=== PATIENT | female | born 1985 | race Caucasian/White ===

== ENCOUNTER 2018-05-06 11:30 | Inpatient (IN) | payer SELFPAY ==
[2018-05-06] VITALS (19 sets, daily range): BP systolic 93–122; BP diastolic 54–76; PULSE 59–82; RESP 16–18; TEMP 36.1–36.9; O2SAT 95–100; BMI 28.8
[2018-05-06] MEDS: Betamethasone/Betamethasone 30 MG/5 ML Vial 12 MG IM (11:55)
[2018-05-06 11:59] LABS: Absolute Lymphocyte Count 1.71 X10^3/ul (0.83-4.51); Absolute Neutrophil Count 10.1 X10^3/uL (2.0-7.7); Basophil# 0.01 X10^3/uL; Basophil% 0.1 % (0-1); Eosinophil# 0.04 X10^3/uL; Eosinophils% 0.3 % (0-5); Hematocrit 40.1 % (37-47); Hemoglobin 13.5 g/dl (12.0-15.0); Lymphocyte # 1.71 X10^3/ul (4.0); Lymphocyte % 13.7 % (19-41); Mean Corp Hgb Conc 33.7 g/gl (32-36); Mean Platelet Vol. 10.3 fl (6.2-12.0); Monocyte# 0.57 X10^3/uL; Monocyte% 4.6 % (0-10); Neutrophil % 81.1 % (47-70); POSITIVE COUNT NO; POSITIVE DIFFERENTIAL NO; POSITIVE MORPHOLOGY NO; Platelet Count 217 K/mm3 (150-450); RBC Distribution Width CV 13.6 % (11.6-14.6); RBC Distribution Width SD 45.7 fl (35.1-43.9); Red Blood Count 4.36 M/mm3 (4.2-5.4); White Blood Count 12.5 K/mm3 (4.4-11.0)
[2018-05-06] MEDS: Cefazolin 2 GM in 0.9% Normal Saline 100 ML IV (12:27)
[2018-05-06] MEDS: Oxytocin 30 units/NS 500 ml 30 UNITS/500 ML IV.SOLN 167 UNITS IV (12:31)
[2018-05-06] MEDS: Lactated Ringers 1,000 ML 100 ML IV ×2 (13:00→21:15)
--- NOTE | 2018-05-06 13:18 | HP.PCM_ITS ---
- Problem List (1) 33 weeks gestation of Status: Acute (2) distress Status: Acute History and Physical Date of Admission: 05/06/18 Date: 05/06/2018 Name: KASSANDRA SANFORD Age: 32 Date of : 1985 Surgical History and Physical Kassandra Sanford, a 32 year old female 4 1 0 2 7, referred by Dr. Thompson for non-reassuring heart rate tracing in office and two days of decreased movement. On arrival Kassandra denies contractions, leaking of fluid or vaginal bleeding. She otherwise feels well. She has a history of 2 prior sections and was planning repeat with Dr. Melendez. [facility] MEDICATIONS HISTORY: ALLERGIES: No Known Allergies Infections - Chicken pox Illnesses - Denies medical history Accidents - None Hospitalizations - see surgery Review of Systems: GENERAL - Denies fever, or chills SKIN - Denies skin changes EYES - Denies visual changes EARS - Denies difficulty hearing NOSE - Denies nasal congestion or bleeding MOUTH - Denies sore throat or difficulty swallowing NECK - Denies pain or swelling RESPIRATORY - Denies shortness of breath or wheezing CARDIOVASCULAR - Denies palpitations or chest pain GASTROINTESTINAL - Denies nausea, vomiting, diarrhea, constipation GENITOURINARY - Denies dysuria, frequency of urination, incontinence of urine MUSCULOSKELETAL - Denies joint or muscle pain NEUROLOGICAL - Denies localized numbness or weakness PSYCHIATRIC - Denies depression or anxiety ENDOCRINE - Denies heat or cold intolerance, weight loss or gain HEMATO-IMMUNOLOGIC - Denies excesive bleeding with cuts SOCIAL HISTORY: Alcohol Use - None Smoking - Never Diet - no special diet Lifestyle - moderate stress lifestyle and Exercise - active work Seat Belt Use - most of the time Employer - [employer] Illicit Drug Use - None Sexual Activity - Spouse-Sig Other Name - Migel Sanford Spouse-Sig Other Occupation - [employer] Children Name(s) - Navin(09),Lei(10),Nasir(12),[employer](13),Bret [employer](15), Control - FAMILY HISTORY: Non-contributory MENSTRUAL HISTORY: LMP Known?- DefiniteAmount/Duration - 6-7 DAYS, Regularity - Regular, Frequency - monthly days, LMP - 09/11/17, Age Onset Menarche - 13 PAST PREGNANCIES: Total Pregnancies - 8; Full Term Pregnancies - 4; Premature - 1; Abortions, Induced - 0; Abortions, Spontaneous - 0; Ectopics - 0; Multiple Births - 2; Living Children - 7 SURGICAL HISTORY: 1. 06/05/2013 ; Dr. Thrasher - 2. 04/16/2015 ; Dr. Mata - 3. 02/23/2017 [facility] ; - PHYSICAL EXAM Vital signs stable, pt afebrile Weight- 174.5 lbs Height- 65 inch CONSTITUTIONAL - NAD, well nourished, and well developed ABDOMEN - Without hepatosplenomegaly, distention, masses, rebound, or guarding; normal bowel sounds; no hernias and AGA NEUROLOGICAL - Cranial nerves II-XII grossly intact PSYCHIATRIC - A and O to time, place, person, mood and affect FHR - 160, absent variability, no accelerations, + late decelerations with every contraction. SVE - deferred TOCO - /10 min ASSESSMENT/PLAN: 1. Encounter for supervision of subsequent , third trimester 2. 33 weeks gestational age 3. Non-reassuring heart rate tracing Single dose betamethasone given. Cat III FHR with mild improvement to Cat II with O2 supplementation and late decelerations present, maternal repositioning and IV fluid hydration. US performed demonstrating WALI 2cm with no movement, breathing or tone c/w BPP 2/10. Given prior poor history, persistent Cat II-III FHR despite oxygen supplementation, maternal repositioning and bolus I advised section. I reviewed with patient and section risks including pain, bleeding, infection, injury to bowel/bladder/ureter, scarring, need for further section, hemorrhage possibly requiring dilation and curettage or hysterectomy, possible need for blood transfusion, laceration. Reviewed risks of prematurity including respiratory distress, hypoglycemia, feeding difficulty, infection, need for prolonged hospitalization. Pediatric Hospitalist notified. Patient and given opportunity to ask questions and questions answered to their satisfaction.
--- NOTE | 2018-05-06 13:25 | OP.PCM_ITS ---
- Problem List (1) 33 weeks gestation of Status: Acute (2) distress Status: Acute Delivery Classification: OLIMPIA Final SYLVIE: 06/18/18 - 22 w US c/w LMP Final SYLVIE Source: LMP Gestational age: 34 Weeks and 2 Days [place] doctor who attended delivery (if requested by OB): Azucena Valdovinos Indications: 32-year-old 8 para 4127 admitted at 33-6/7 weeks gestational age with complaint of decreased movement. She was referred from her primary OB Dr. Thompson for nonreassuring heart rate tracing in the office. On arrival she had a category 3 heart rate tracing with only minimal improvement despite resuscitative measures and WALI of 2 cm with no evidence of breathing, movement, tone on ultrasound. She is advised to proceed with repeat section. Risks, benefits, indications were reviewed with patient as well as potential risks of prematurity. Consents were signed. The patient agreed to proceed. Patient had indicated she was uncertain regarding sterilization at the time of her procedure thus this was not planned. Indications for : Repeat Elective , Distress Description of Procedure: Procedure: The patient was taken to the operating room and spinal analgesia was administered. She is placed in a dorsal supine position with left lateral tilt. The perineum and abdomen were prepped and draped in sterile fashion. And the spinal was found to be adequate. A Pfannenstiel incision was made using a scalpel and brought down to incise the subcutaneous tissue and rectus fascia at the midline. Subcutaneous tissue was bluntly dissected off the fascia laterally. The fascial incision was dissected laterally and cephalad using curved Dockery scissors. The superior leaflet of the rectus fascia was grasped using Bijan clamps and bluntly dissected and sharply dissected from the underlying rectus muscle. In a similar fashion the inferior rectus fascia was dissected from the underlying muscle. The rectus muscles were bluntly at the midline. The peritoneum was identified and entered [sharply]. The bladder blade was placed into the abdomen and the vesicouterine peritoneal fold identified. The fold was incised and a bladder flap created. Bladder blade was then repositioned to the abdomen. A low transverse hysterotomy was made using the [Metzenbaum scissors] to level of the membranes. The hysterotomy was extended bluntly cephalad and caudad. The membranes were then ruptured revealing clear fluid. The head was elevated and brought to the level of the hysterotomy and the delivered revealing a [male] infant. The cord was doubly clamped and cut. The infant was passed to awaiting [nursery personnel and Pediatric Hospitalist]. The placenta was [expressed] from the uterus and appeared intact on inspection. The uterus was cleared of debris. The hysterotomy was then repaired using 0 Vicryl running lock suture. A second imbricating layer was also placed for additional hemostasis. The bladder blade was removed. The anterior cul-de-sac was cleared of debris. The peritoneum and rectus muscles were reapproximated using 2-0 Vicryl running suture. The rectus fascia was closed using 1 Stratafix running suture. The subcutaneous tissue was sponge irrigated and small capillary bleeding controlled using the Bovie device. The subcutaneous tissue was reapproximated using 2-0 Vicryl. The skin was closed using 4-0 Monocryl subcuticularly by the SHELL MOLDING ROLLER BLAST OPERATOR under my supervision. A Mepilex occlusive dressing was placed over the incision. The fundus was firm. The patient was then transferred to the recovery room without complication. Sponge, instrument, and needle counts were correct ?2. Amniotic Membrane Rupture Type: Artificial Amniotic Fluid Description: Clear Placenta Disposition: Routine to Lab Specimen(s) sent to pathology: Placenta Drain: Kim to straight drain Fluids Replaced: 1500 ml Cord Entanglement: None Cord Vessel Description: 3 Vessels Esitmated Blood Loss (ml): 500 Gender: Male (1 minute): 8 (5 minute): 9 Delayed cord clamping: No Pre-op Antibiotic Given: Ancef 2 grams IV x1 Pt instructed on risks of surgery: Bleeding, Anesthesia Risks, Infection, Need for Future C-Sections, Injury to surrounding structure(s) including bowel and bladder Complications: None - Admit VTE Documentation VTE Present on Admission: No VTE Mechan Device Prophylaxis: SCD's VTE Pharm Prophylaxis ordered?: No
[2018-05-06] MEDS: Ondansetron ODT 4 MG Tablet PO (15:53)
[2018-05-06] MEDS: Ketorolac 30 MG/ML Syringe IV (18:49)
[2018-05-06] MEDS: 0.9% Saline Lock 10 ML Syringe IV (18:50)
[2018-05-07] VITALS (9 sets, daily range): BP systolic 97–114; BP diastolic 56–73; PULSE 53–82; RESP 16–18; TEMP 36.3–36.9; O2SAT 95–100
[2018-05-07] MEDS: Ketorolac 30 MG/ML Syringe IV ×5 (00:13→23:41)
[2018-05-07] MEDS: 0.9% Saline Lock 10 ML Syringe IV ×8 (00:14→23:43)
[2018-05-07] MEDS: Nalbuphine 10 MG/ML Ampul 5 MG IV (01:14)
[2018-05-07 06:49] LABS: Hematocrit 37.2 % (37-47); Hemoglobin 12.5 g/dl (12.0-15.0); Mean Corp Hgb Conc 33.6 g/gl (32-36); Mean Corpuscular Volume 92.3 fL (81-99); Mean Platelet Vol. 10.4 fl (6.2-12.0); Platelet Count 207 K/mm3 (150-450); RBC Distribution Width CV 13.6 % (11.6-14.6); RBC Distribution Width SD 45.5 fl (35.1-43.9); Red Blood Count 4.03 M/mm3 (4.2-5.4); White Blood Count 16.4 K/mm3 (4.4-11.0)
[2018-05-07 06:55] LABS: Scan Indicated on CBC? Y/N NO
--- NOTE | 2018-05-07 07:54 | PCM.PN.OB ---
Patient Problems: Active and Suspected Problems 33 weeks gestation of (Acute) distress (Acute) Subjective: Patient without complaints. Tolerating diet well. Pain is well controlled. Positive flatus. - Physical Exam Vital Signs AF, VSS Temp Pulse Resp BP Pulse Ox 97.3 F L 54 L 17 114/71 99 05/07/18 04:15 05/07/18 06:15 05/07/18 06:15 05/07/18 04:15 05/07/18 06:15 Oxygen Delivery Method Room Air Weight: 173 lb Body Mass Index (BMI) 28.8 Intake and Output for Last 24 Hours 05/05/18 05/06/18 05/07/18 23:59 23:59 23:59 Intake Total 2718 / 2718 2090 / 2090 Output Total 1900 / 1900 1300 / 1300 Balance 818 / 818 790 / 790 Laboratory Tests Past 24 Hrs 05/06/18 05/06/18 05/07/18 11:45 11:45 06:25 WBC 12.5 H 16.4 H RBC 4.36 4.03 L Hgb 13.5 12.5 Hct 40.1 37.2 MCV 92.0 92.3 MCH 31.0 31.0 MCHC 33.7 33.6 RDW 13.6 13.6 RDW Differential 45.7 H 45.5 H Plt Count 217 207 MPV 10.3 10.4 Immature Gran % (Auto) 0.200 Neut % (Auto) 81.1 H Lymph % (Auto) 13.7 L Pratt % (Auto) 4.6 Eos % (Auto) 0.3 Baso % (Auto) 0.1 Absolute Neuts (auto) 10.1 H Absolute Lymphs (auto) 1.71 Total Counted Not Reportable Blood Type A POSITIVE Antibody Screen NEGATIVE Wound is clean, dry, intact. Good urine output. Hemoglobin okay. Medical Necessity - Tobacco Use Smoking Status: Never smoker Assessment/Plan All Active Problems 33 weeks gestation of (Acute) distress (Acute) Doing well. Continuing present care. Would like to go to [facility] status tomorrow if good progress continues.
[2018-05-07] MEDS: Senna/Docusate Sodium 1 Tablet PO (11:32)
[2018-05-08 02:50] VITALS: BP 108/66; PULSE 68; RESP 18; TEMP 36.4
[2018-05-08] MEDS: Ketorolac 30 MG/ML Syringe IV ×2 (05:36→11:37)
[2018-05-08] MEDS: 0.9% Saline Lock 10 ML Syringe IV ×3 (05:36→11:34)
[2018-05-08 08:17] VITALS: BP 106/69; PULSE 70; RESP 18; TEMP 36.6; O2SAT 97
--- NOTE | 2018-05-08 09:15 | PCM.PN.OB ---
Patient Problems: Active and Suspected Problems 33 weeks gestation of (Acute) distress (Acute) Subjective: Without complaints. Tolerating diet well. Breast-feeding going well. Vaginal bleeding. Be well likely stay a few more days. - Physical Exam Vital Signs Temp Pulse Resp BP Pulse Ox 97.8 F 70 18 106/69 97 05/08/18 08:17 05/08/18 08:17 05/08/18 08:17 05/08/18 08:17 05/08/18 08:17 Oxygen Delivery Method Room Air Weight: 173 lb Body Mass Index (BMI) 28.8 Intake and Output for Last 24 Hours 05/06/18 05/07/18 05/08/18 23:59 23:59 23:59 Intake Total 2718 / 2718 2090 / 2090 Output Total 1900 / 1900 3200 / 3200 Balance 818 / 818 -1110 / -1110 Medical Necessity - Tobacco Use Smoking Status: Never smoker Assessment/Plan All Active Problems 33 weeks gestation of (Acute) distress (Acute) Doing well postoperative day #2 status post . Continuing present care.
--- NOTE | 2018-05-08 14:30 | NURSING ---
This occupational health nursing director reviewed the charting completed by the executive director of nursing today, Pearl
[2018-05-08 14:45] VITALS: BP 108/73; PULSE 78; RESP 18; TEMP 36.6; O2SAT 98
[2018-05-08 20:10] VITALS: BP 115/73; PULSE 79; RESP 16; TEMP 36.4; O2SAT 97
[2018-05-08] MEDS: Acetaminophen 500 MG Tablet 1000 MG PO (22:33)
[2018-05-09 01:02] VITALS: BP 107/71; PULSE 70; RESP 16; TEMP 36.4; O2SAT 97
[2018-05-09 07:35] VITALS: BP 112/73; PULSE 77; RESP 18; TEMP 36.6; O2SAT 97
[2018-05-09] MEDS: Acetaminophen 500 MG Tablet 1000 MG PO (07:56)
--- NOTE | 2018-05-09 09:21 | PCM.PN.OB ---
Patient Problems: Active and Suspected Problems 33 weeks gestation of (Acute) distress (Acute) Subjective: Patient without complaints. Tolerating diet well. Rash from [place] resolving. Wants to be released to hotel status today. - Physical Exam Vital Signs AF, VSS Temp Pulse Resp BP Pulse Ox 97.9 F 77 18 112/73 97 05/09/18 07:35 05/09/18 07:35 05/09/18 07:35 05/09/18 07:35 05/09/18 07:35 Oxygen Delivery Method Room Air Weight: 173 lb Body Mass Index (BMI) 28.8 Intake and Output for Last 24 Hours 05/07/18 05/08/18 05/09/18 23:59 23:59 23:59 Intake Total 2090 / 2090 Output Total 3200 / 3200 Balance -1110 / -1110 Wound is clean, dry, intact. Medical Necessity - Tobacco Use Smoking Status: Never smoker Assessment/Plan All Active Problems 33 weeks gestation of (Acute) distress (Acute) Doing well postoperative day #3 from emergency section. Will release to home with routine instructions.
--- NOTE | 2018-05-09 09:22 | PCM.DC.BLA ---
Discharge Summary Date of Admission: 05/06/18 Date of Discharge: 05/09/18 Summary: History of present illness: This is a 32-year-old patient who presents at approximately 33 weeks gestation with labor. Nonstress test showed some distress. Physical exam: Unremarkable Course: Patient was admitted and had a emergency section performed. Postoperatively the patient did well demonstrating stable hemoglobin and bowel function by postoperative day #1. Patient's baby is in the special care nursery and she decided to be released to hotel status on postoperative day #3. Discharge instructions and follow-up: Patient was instructed not put anything the vagina for a month call the office for an appointment in 2 weeks and 6 weeks. She was also given a prescription for oxycodone and Colace to be used as needed
[2018-05-09 09:25] VITALS: BP 115/71; PULSE 81; RESP 14; TEMP 36.7; O2SAT 99
--- NOTE | 2018-05-09 09:54 | NURSING ---
Dr. Melendez notified that pt has erythema, firmness, and puritis noted on rt upper leg with a definite line noted on upper thigh area by RN this morning after pt's shower. Pt thought that it might be related to k-pad being on too long on rt side but erythema also noted above mepilex dressing. Dr. Melendez looked at the area at this time and feels like it is more related to allergic reaction to adhesive from betadine drape from surgery. Erythema has improved on rt side but also noted now on left side in groin area. instructed pt to just clean around the area well when showering and follow up with him in office in 2 weeks and 6 weeks.
[2018-05-09 10:22] VITALS: BP 115/71; PULSE 81; RESP 14
--- NOTE | 2018-05-09 10:28 | PCM.DCCSEC ---
Discharge Diet: No Restrictions Discharge Activity: May not drive while taking narcotic pain medications., May Shower, May Take a Tub Bath May resume sexual activity in: 4-6 weeks Lifting Restrictions: 20 pounds Additional Activity Instructions:: Nothing in the vagina for 4-6 weeks. You may return to work/school in 6 weeks. Call your doctor if your incision/area has: Continuous Slow Oozing, Sudden Increased Bleeding, Increased Pain/ Swelling, Increased Redness, Foul Smelling Discharge Call your doctor if you observe: Fever of 101 or Higher, Inability to urinate, Inability to have a bowel movement, Using more than one pad per hour Additional Instructions: If you experience any of the following, contact your healthcare provider. Bleeding that soaks a pad every hour for 2 hours Unrelieved incision or abdominal pain Swelling, redness, discharge or bleeding from your incision or episiotomy site Your incision begins to separate Problems urinating (including inability to urinate or burning while urinating). Visual changes Severe headache Flu-like symptoms Pain or redness in one of both of your breasts Pain, warmth, tenderness or swelling in your legs, especially the calf area Frequent nausea and vomiting Symptoms of depression or anxiety If you experience any of the following, call 911 or go to the nearest Emergency Room. Chest pain Problems breathing Seizure activity Partial or complete paralysis of a body part, slurred speech, weakness or drooping of the face, or a sudden inability to walk or hold your balance Allergies/Adverse Reactions: Allergies No Known Allergies Allergy (Verified 05/06/18 12:06) Follow-Up: Call to make an appointment with your doctor for an incision check in 1-2 weeks. You will also need a 6 week post- follow up appointment. Test results from this visit will be discussed in further detail at your follow-up appointment, if applicable. Please Follow Up With: Ashwin Melendez MD - [phone] When: Call to make an appointment for an incision check in 2 weeks. Primary Care Physician: Krzysztof Thompson DO [Primary Care Provider] -
--- NOTE | 2018-05-09 10:32 | DCINST_ITS ---
Discharge Diet: No Restrictions Discharge Activity: May not drive while taking narcotic pain medications., May Shower, May Take a Tub Bath May resume sexual activity in: 4-6 weeks Lifting Restrictions: 20 pounds Additional Activity Instructions:: Nothing in the vagina for 4-6 weeks. You may return to work/school in 6 weeks. Call your doctor if your incision/area has: Continuous Slow Oozing, Sudden Increased Bleeding, Increased Pain/ Swelling, Increased Redness, Foul Smelling Discharge Call your doctor if you observe: Fever of 101 or Higher, Inability to urinate, Inability to have a bowel movement, Using more than one pad per hour Additional Instructions: If you experience any of the following, contact your healthcare provider. * Bleeding that soaks a pad every hour for 2 hours * Unrelieved incision or abdominal pain * Swelling, redness, discharge or bleeding from your incision or episiotomy site * Your incision begins to separate * Problems urinating (including inability to urinate or burning while urinating). * Visual changes * Severe headache * Flu-like symptoms * Pain or redness in one of both of your breasts * Pain, warmth, tenderness or swelling in your legs, especially the calf area * Frequent nausea and vomiting * Symptoms of depression or anxiety If you experience any of the following, call 911 or go to the nearest Emergency Room. * Chest pain * Problems breathing * Seizure activity * Partial or complete paralysis of a body part, slurred speech, weakness or drooping of the face, or a sudden inability to walk or hold your balance Allergies/Adverse Reactions: Allergies No Known Allergies Allergy (Verified 05/06/18 12:06) Follow-Up: Call to make an appointment with your doctor for an incision check in 1-2 weeks. You will also need a 6 week post- follow up appointment. Test results from this visit will be discussed in further detail at your follow- up appointment, if applicable. Please Follow Up With: Ashwin Melendez MD - [phone] When: Call to make an appointment for an incision check in 2 weeks. Primary Care Physician: Krzysztof Thompson DO [Primary Care Provider] -
[2018-05-09 15:00] VITALS: BP 119/79; PULSE 87; RESP 14; TEMP 36.7; O2SAT 97
== END 2018-05-09 18:00 | disposition home or self-care (01) | DRG 765 ==
PROVIDERS: Admitting Provider Obstetrics & Gynecology; Family Provider Family Medicine; PCP Family Medicine; Visit Provider Obstetrics & Gynecology
DX: O76 Abnormality in fetal heart rate and rhythm complicating labor and delivery (principal); O60.14X0 Preterm labor third trimester with preterm delivery third trimester, not applicable or unspecified; O36.8130 Decreased fetal movements, third trimester, not applicable or unspecified; O34.211 Maternal care for low transverse scar from previous cesarean delivery; Z3A.33 33 weeks gestation of pregnancy; Z37.0 Single live birth
CPT/HCPCS: 85025; 85027; 86850; 86900; 99218; J7120; 90686; A4216; G0378; J0702; J2405

== ENCOUNTER → 2020-05-18 | Outpatient (CLI) | payer OTHER, SELFPAY ==
[2018-05-06 11:41] VITALS: BMI 28.8
[2020-05-21 20:33] LABS: HPV Reflexed? NOT INDICATED
[2020-05-22 03:06] LABS: Chlamydia By Nucleic Acid AMP Negative (Negative)
[2020-05-22 14:09] LABS: Gonococcus By Nucleic Acid AMP Negative (Negative)
== END | disposition home or self-care (01) ==
LOC: LABSPEC 05-19 09:38
PROVIDERS: PCP Family Medicine; Visit Provider Obstetrics & Gynecology
DX: Z12.4 Encounter for screening for malignant neoplasm of cervix (principal); Z11.3 Encounter for screening for infections with a predominantly sexual mode of transmission
CPT/HCPCS: 87491; 87591; 88175; G0145

== ENCOUNTER 2020-08-28 14:45 | Outpatient (CLI) | payer OTHER, SELFPAY ==
[2018-05-06 11:41] VITALS: BMI 28.8
[2020-08-28 15:02] VITALS: BP 113/70; PULSE 95; TEMP 37.1; O2SAT 100
[2020-08-28 15:03] VITALS: TEMP 37.1
[2020-08-28 15:18] VITALS: BMI 28.4
--- NOTE | 2020-08-28 17:05 | PCM.PN.BLA ---
Progress Note TRIAGE NOTE HPI: 35 yo [id number] at 29/1w, SYLVIE 11/12/20 by LMP, presenting with bleeding. Had some spotting after riding in a car today. She has had this happen after a car ride in the past. Denies LOF, contractions. +FM. Had some light pink with wiping, feels like this is lightened greatly since this early afternoon. This is complicated by: previa with 4 prior sections, prior [id number] deliveries, AMA, brother with factor V Leiden Obstetrical History G1: 38w G2: 6w SAB G3: 37w G4: 38w G5: 35w c/s twins G6: 34w c/s twins G7: 24w G8: 33w c/s G9: current Past Medical History None Medications PNV, asa 81 mg Past Surgical History c/s, D&C Social History Tobacco use: denies Alcohol use: denies Illicit drug use: denies Labs Blood type: A pos Rubella: immune Hep B/C: neg/neg HIV: unk RPR: nonreactive GBS: unknown Allergies NKDA Review of Systems General: alert and oriented HEENT: _denies change of vision Heart/lungs: _denies CP, SOB GI: _denies nausea, vomiting, dysuria, diarrhea MSK: _denies calf pain, tenderness Physical Exam Vital Signs Temp Pulse BP Pulse Ox 08/28/20 15:03 98.8 F 08/28/20 15:02 98.8 F 95 113/70 100 General: a&o x3, NAD HEENT: normocephalic, atraumatic Cardio: no JVD Resp: no increased work in breathing Abdomen: soft, gravid, nontender Extremities: _minimal-moderate edema CE: not done. Scant blood on pad that is old brown blood. FHT: 150/mod gilberto/+accel/no decel [place]: quiet Labs None Assessment & Plan 35 yo [id number] at 29/1w, SYLVIE 11/12/20 by LMP, presenting with bleeding, known placenta previaThis is complicated by: previa with 4 prior sections, prior deliveries, AMA, brother with factor V Leiden. -Patient has been monitored for 2 hours, will monitor for a total of 3 hours. status reassuring, NST reactive. Patient is not long. Bleeding has improved greatly and is now scant with wiping. Discussed bleeding with placenta previa at length with the patient and her . Discussed when to come to hospital to be evaluated. All questions answered. Her next appointment is Sunday in [place] for apt and US. Plan: monitor x3hr, as long as stable will be discharged home. STROKE Vital Signs/Narrative: Vital Signs Temp Pulse BP Pulse Ox 08/28/20 15:03 98.8 F 08/28/20 15:02 98.8 F 95 113/70 100
== END 2020-08-28 18:18 | disposition home or self-care (01) ==
LOC: WPOUT 14:47 → WP 14:48
PROVIDERS: PCP Family Medicine; Visit Provider Student in an Organized Health Care Education/Training Program
DX: O44.10 Complete placenta previa with hemorrhage, unspecified trimester (principal); O34.219 Maternal care for unspecified type scar from previous cesarean delivery; Z3A.00 Weeks of gestation of pregnancy not specified; Z79.82 Long term (current) use of aspirin; Z87.59 Personal history of other complications of pregnancy, childbirth and the puerperium
CPT/HCPCS: 59025; 59050; 99218; G0378

== ENCOUNTER 2020-09-21 08:40 | Inpatient (IN) | payer SELFPAY ==
[2020-09-21] VITALS (21 sets, daily range): BP systolic 101–125; BP diastolic 53–76; PULSE 62–97; RESP 15–18; TEMP 36.1–37.2; O2SAT 95–100; BMI 28.8
[2020-09-21 08:37] LABS: ROM Internal Control Test YES-OK TO RESULT pt. (Internal QC)
[2020-09-21 08:38] LABS: ROM Patient Test POSITIVE (Negative)
--- NOTE | 2020-09-21 08:54 | HP.PCM_ITS ---
History and Physical Date of Admission: 09/21/20 OG ANTEPARTUM RECORD - HISTORY AND PHYSICAL (09/21/2020) Name: EBONY SANFORD History of this : This is a 35 year old [id number] presents at 32 wks + 4 days gestation with bleeding and rupture of membranes. OB Physician: Ashwin Melendez MD Melbeta's Physician: Jay ...................................................................... : 1985 Age: 35 Address: [address] [place] [address] Phone: H) [phone] ([phone] Insurance Carrier: Emergency Contact: NONE ...................................................................... Final SYLVIE: 11/12/20 By Ultrasound: 14 weeks 4 days PARITY: (G-Total Pregnancies P-Fullterm,Premature,Induced AB,Spont AB, Ectopics, Multiple,Living) SYLVIE CONFIRMATION: By LMP: 02/06/20 Final SYLVIE: 11/12/20 OB PROBLEM LIST: Total previa at 14+ weeks gestation--central previa persists 28 weeks; repeat 2 weeks at [facility] with doppler and full bladder to confirm no accreta or bladder encroachment; reviewed bleeding precautionms and delivery 37 weeks gestation 2 sets of twins, born at 35 weeks, and 34 weeks AMA. Likely to decline AFP, CF/SMA carrier screen. Brother with Factor V Hx of 24 week IUFD Prior C/S x 4, plans repeat at [facility]. 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 Drug Use - denies use of street drugs Sexual Activity - Residence - [facility] [place] Spouse-Sig Other Name - Migel Sanford Spouse-Sig Other Occupation - [employer] Children Name(s) - Navin(09),Lei(10),Nasir(12),[employer](13),Bret [employer] Sonali(15) Carlos (18) PRIOR DELIVERY HISTORY DEL DATE GEST LAB WT LB WT OZ TYPE ANES LABOR TX 01 Nov 10 6 0 0 0 Sab None No 04 Sep 15 34 0 0 0 C-Sec Spinal No 14 Howard 17 24 0 0 0 Vagin General No 21 Dec 10 37 0 6 12 Vag None No 24 Mar 12 38 0 6 9 Vag None No 24 Oct 13 35 0 0 0 C-Sec General No 24 Sep 18 33 0 4 12 C-Sec Spinal No 28 Sep 09 38 0 7 6 Vag None No ANTEPARTUM FLOW CHART VISIT GE RTC FU F F MI U U DATE WK MD WKS HT PN HR M SS BP ED WT MI GL D EF ST __ ____ ___ __ __ ___ __ __ __ ___ __ __ __ ___ __ 05 Sep JM 2 32 V + + 120/82 sl 171 Sep 11 JMW 1 30 + + 124/76 sl 169 tr - Sep 10 JMW 2 29 + + 124/72 0 173 ne ne Sep 09 JMW 2 29 + + 116/62 0 170 - - Aug 05 JM 4 24 - + + 120/64 sl 166 tr - Jul 02 JM 4 20 - + + 110/64 sl 163 - - ANTEPARTUM NOTE(S): Sep 17 2020: decreased FM, discharge, spotaneous ctx's Sep 06 2020: scant bleeding; plans to stay in [facility] Sep 01 2020: US today, minimal bleeding; previa persists Aug 24 2020: No bleeding since 08/20Jul 27 2020: see progress note Jun 29 2020: Doing Well, Comp U/S today COMPREHENSIVE ANTEPARTUM NOTE(S): Sep 17 2020: Ebony is here for a PNV. FM today. Has had random episodes of decreased FM. Clear + brown-black discharge along with spontaneous ctx's. Sl edema in ankles, tx's with compression socks. No other concerns expressed. Sep 17 2020: 32wk, complete previa. S/p u/s 09/01/20 with no signs of accreta here at [facility]. For delivery at 36-37wks via c/s. To move closer to hospital. No bleeding now, dark discharge. For growth u/s at next visit. Sep 06 2020: Van are here to eval bleeding. Started yesterday at int. Sometimes just on tp, other times in commode. Did not wear pad in. Baby moving like usual. Sl edema lower legs w puffy ankles yasmine. DRC. Sep 01 2020: Ebony is here for US and PNV. Has not had anymore bleeding since sunday. Having good FM. No edema noted. States she feels pretty good. Is concern about placenta placement. Urine dipped neg and neg. LSS Aug 24 2020: Ebony presents here today for Sono and Pnv. Reports she has had no bleeding since Sunday08/20/20 when she called our Office and She never went back to check message phone as that is why they never returned our call. Good FM. LIBAN Jul 27 2020: Ebony presents for her PNV. She is reporting +FM however relates it is much slower than she recalls with her previous pregnancies. Pt sts she had small vaginal spotting starting Sun07/23/20 and lasted 3days changing to a drk brown discharge after about the first 32hrs. Pt also had a moderate am't of low back and lower abd cramping. She has some edema in her Lt lower extremity today d/t her vericosities. Pt drank her glucola and will have her 1hrGTT/CBC today. JT Jul 27 2020: Labs drawn x2 attempts. 1st attempt left ac 23g butterfly no blood return. Patient tolerated well site without compromise, second attempt from rt ac with 23G butterfly patient toleratd well site without compromise. 1hr gct, and cbc. jlb Jul 27 2020: 24wk, 1hr GTT today. Complete previa, had some spotting over the weekend with no bleeding past two days. Rediscussed precautions, pelvic rest, limit heavy lifting. For repeat u/s at 28wks, if still previa will need u/s at [place] vs [facility] with doppler for accreta. Will need repeat c/s at 36-37wk with discussion on risks of accreta at that time. Pt aware of these risks. Consider growth u/s and BPP's. JM Jun 29 2020: Ebony presents for her PNV. She is reporting +FM. She has slight swelling in her lower extremities more prominent by evening, but sts it has improved since wearing her support stockings daily for her vericose veins. No questions or concerns voiced. JT Jun 29 2020: 20wk, Anatomy u/s today AGA. Complete placenta previa noted, discussed results with pt. For repeat u/s at 28wks. Discussed risk of having previa with hx of 4 prior c/s would be approximately 61% risk for placenta accreta. Pt desires to deliver at [facility], further Discussion by Dr. Melendez should be considered for tertiary center for delivery. Pt has had light spotting weeks ago, educated on bleeding with previa. For pelvic rest. Call if bleeding. AMA, grand multip. Will plan for twice weekly BPP's after 28wk u/s. For 1hr GTT at next visit. RAO May 27 2020: TELEHEALTH NOB VISIT, 45 MINUTE DURATION. Ebony is a 34 year old G9, she has two sets of twins, one early SAB, and one 24 week IUD, and has 8 children at home. Hx of 4 C/S, the last one in 2018 when her youngest child was delivered at 33 weeks for distress. She plans to have a repeat C/S at [facility], and will breastfeed. Ebony has concerns about when her C/S will be performed, as she currently has a complete placenta previa, and she lives at least one hour away; she plans to discuss this at her next PNV with Dr. Jadiel Sanford. 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 She states some lingering nausea, but no vomiting; she also has been experiencing periods of fatigue. Discussed making sure that she is getting adequate wate hydration of at least one gallon per 24 hours, and small frequent meals with protein included throughout the day. Office practice patterns reviewed. Emergencies/danger signs, how to contact the office during/after hours, reporting a suspected UTI, round ligament pain, and common OTC medications for minor ailments approved/not approved during . Ebony is a life long non-smoker, and she denies any use of drugs or ETOH. She takes several dietary supplements, Iron once a day, calcium, and an OTC tablet that she states she tolerates well. She reports that she has a history of some depression off and on, but nothing bad. States that she feels she is doing good with depression at this point and denies thoughts of harming herself or others. She is 34 yrs old, but states that she will probably decline AFP, and CF/SMA carrier screening. She has a brother with Factor V, and her has a few cousins with Down Syndrome. Reviewed physical activity, lifting restriction recommendations for . Reinforced dietary/water/caloric needs, including recommended weight gain, limiting empty calories, limiting caffeine to one cup a day, and food safety during . Pasha states that she understands all informaiton provided during NOB visit, and she has no questions following same. AW New May 18 2020: ok May 18 2020: Ebony presents for her Missed Menses. She is a 34yo G 9, P 8, AB 1, 24wk demise 1, and hx of 2 twin pregnancies. Pt has had 3 C-sections and is planning to deliver via R/ at [facility]. +UPT in office today. LMP 02/06/20, SYLVIE by LMP 11/11/20. She has mild nausea but no vomitting. Pt is taking a PNV as well as several other supplements. JT May 18 2020: labs obtained from left ac x 1 attempt with 23g butterfly patient tolerated well site without compromise. jlb REVIEW OF SYSTEMS: GENERAL - Denies fever, or chills SKIN - Denies rash, new skin lesions, or change in moles EYES - Denies blurred vision, or change in visual acuity EARS - Denies ear pain, or difficulty hearing NOSE - Denies nasal congestion, discharge, or bleeding MOUTH - Denies sore throat, or difficulty swallowing NECK - Denies pain or swelling RESPIRATORY - Denies shortness of breath, cough, wheezing CARDIOVASCULAR - Denies palpitations, chest pain, orthopnea, PND, peripheral edema, syncope or claudication GASTROINTESTINAL - Denies nausea, vomiting, diarrhea, constipation, Denies abdominal pain, melena and or bright red blood GENITOURINARY - Denies dysuria, frequency of urination, urgency, or hesitancy MUSCULOSKELETAL - Denies joint or muscle pain, or back pain NEUROLOGICAL - Denies localized numbness, weakness, or tingling PSYCHIATRIC - Denies depression, anxiety, substance abuse or suicide attempts ENDOCRINE - Denies heat or cold intolerance, weight loss or gain, increasing thirst HEMATO-IMMUNOLOGIC - Denies easy bruising, bleeding, oral ulcerations or recurrent infections GENETICS SCREENING: Age 35+ years: Yes Thalassemia: No Neural Tube Defect: No Down Syndrome: Yes, Spouse has 1st cousins CÉSAR-SACHS: No Sickle Cell Disease: No Hemophilia: No Musc. Dystrophy: No Cystic Fibrosis: No-declines screening Maries Chorea: No Mental Retardation: No Fragile X: No Other genetic: No Other defects: No SABs/still births: No Drugs since LMP: No Comments: Brother Factor V INFECTION HISTORY: High risk AIDS: No High risk Hepatitis: No Exposed to TB: No Exposed to Herpes: No Rash/viral illness since LMP: No History of STD: No MENSTRUAL HISTORY: *Menarche (Age Onset): 13* PAST SUMMARY: PARITY: 1. Total Pregnancies............ 9 2. Full Term Pregnancies........ 5 3. Premature.................... 1 4. Abortions - Induced.......... 0 5. Abortions - Spontaneous...... 1 6. Ectopics..................... 0 7. Multiple Births.............. 2 8. Living Children.............. 8 PAST #1: Date of :.................. 05/10/09 Gestation Weeks:................ 38 Length of labor(hours):......... 0 Sex:............................ M Weight-lbs:............... 7 Weight-oz:................ 6 Type of Delivery:............... Vag Type of Anesthesia:............. None Place of Delivery:.............. [facility] Treatment of Labor?:.... No Comment: PAST #2: Date of :.................. 11/11/09 Gestation Weeks:................ 6 Length of labor(hours):......... 0 Sex:............................ Weight-lbs:............... 0 Weight-oz:................ 0 Type of Delivery:............... Sab Type of Anesthesia:............. None Place of Delivery:.............. HOME Treatment of Labor?:.... No Comment: PAST #3: Date of :.................. 08/02/10 Gestation Weeks:................ 37 Length of labor(hours):......... 0 Sex:............................ M Weight-lbs:............... 6 Weight-oz:................ 12 Type of Delivery:............... Vag Type of Anesthesia:............. None Place of Delivery:.............. [place] [facility] Treatment of Labor?:.... No Comment: PAST #4: Date of :.................. 11/04/11 Gestation Weeks:................ 38 Length of labor(hours):......... 0 Sex:............................ M Weight-lbs:............... 6 Weight-oz:................ 9 Type of Delivery:............... Vag Type of Anesthesia:............. None Place of Delivery:.............. [place] [facility] Treatment of Labor?:.... No Comment: PAST #5: Date of :.................. 06/05/13 Gestation Weeks:................ 35 Length of labor(hours):......... 0 Sex:............................ M/M Weight-lbs:............... 0 Weight-oz:................ 0 Type of Delivery:............... C-Sect Type of Anesthesia:............. General Place of Delivery:.............. [facility] Treatment of Labor?:.... No Comment: TWINS, TWIN B P/ PAST #6: Date of :.................. 04/16/15 Gestation Weeks:................ 34 Length of labor(hours):......... 0 Sex:............................ M/F Weight-lbs:............... 0 Weight-oz:................ 0 Type of Delivery:............... C-Sect Type of Anesthesia:............. Spinal Place of Delivery:.............. [facility] Treatment of Labor?:.... No Comment: TWINS PAST #7: Date of :.................. 02/23/17 Gestation Weeks:................ 24 Length of labor(hours):......... 0 Sex:............................ M Weight-lbs:............... 0 Weight-oz:................ 0 Type of Delivery:............... Vaginal Type of Anesthesia:............. General Place of Delivery:.............. [facility] Treatment of Labor?:.... No Comment: PREVIA PAST #8: Date of :.................. 05/06/18 Gestation Weeks:................ 33 Length of labor(hours):......... 0 Sex:............................ M Weight-lbs:............... 4 Weight-oz:................ 12 Type of Delivery:............... C-Sect Type of Anesthesia:............. Spinal Place of Delivery:.............. [facility] Treatment of Labor?:.... No Comment: DISTRESS PHYSICAL EXAMINATION General Appearence: 35 yo female in no acute distress Vital Signs: AF, VSS Heart: RRR without rubs or gallops Lungs: CTA x 2 Breasts: deferred Abdomen: gravid Pelvis: Cervix: Presentation: cephalic Station: Fetus: Size: AGA Movement: present Heart: present LAB TEST(S) ORDERED SINCE:02/16/20 07/27/2020 GLUCOSE CHALLENGE 50GM 1 HOUR 07/27/2020 CBC + DIFF 05/22/2020 CHLAMYDIA/GC DANIEL APTIMA 05/21/2020 POMERENE 3 [CCL] 05/21/2020 PAP IG W/REFLEX HR HPV APTIMA 05/21/2020 HEPATITIS C AB IA W/CONFIRM [CCL] 05/18/2020 URINALYSIS 05/18/2020 TSH 05/18/2020 CBC + DIFF 05/18/2020 BB TYPE 09/21/2020 (ROM) RUPTURE OF MEMBRANES == ==== Order Observation Description Value Ref_Range A* Site == ==== (ROM) RUPTURE O NOTE ARCE (ROM) RUPTURE O ROM POSITIVE Negative A ML Amniotic fluid present indicates rupture of Membranes. RESULTS CALLED TO STEPHON PEÑA() 09/21/20 [id number]. REPORT READ BACK BY SAME . GLUCOSE CHALLEN NOTE [facility] GLUCOSE CHALLEN GLUCOSE CHALLENGE 50GM 1 [facility] GLUCOSE CHALLENGE 50 GMS 1 HOUR GLUCOSE CHALLEN GLUCOSE 1HR 119 mg/dl 70 - 140 [facility] CBC + DIFF NOTE [facility] CBC + DIFF CBC + DIFF [facility] CBC-COMPLETE BLOOD COUNT CBC + DIFF WBC 9.8 x 10EE3/UL 4.5 - 10.8 [facility] CBC + DIFF RBC 3.82 x 10EE6/UL 4.10 - 5.30 L [facility] CBC + DIFF HEMOGLOBIN 11.5 g/dl 12.0 - 16.0 L [facility] CBC + DIFF HEMATOCRIT 33.6 % 34.0 - 46.0 L [facility] CBC + DIFF MCV 88 fl 80 - 99 [facility] CBC + DIFF MCH 30 pg 27 - 33 [facility] CBC + DIFF MCHC 34 X10 3 32 - 36 [facility] CBC + DIFF RDW/CV 14.3 % 12.0 - 15.6 [facility] CBC + DIFF PLATELET 287 x10EE3/UL 150 - 450 [facility] CBC + DIFF MPV 8.0 fl 6.6 - 10.5 [facility] AUTOMATED DIFFERENTIAL CBC + DIFF NEUT % 79.0 % 46.0 - 76.0 H [facility] CBC + DIFF LYMPH % 14.2 % 20.0 - 45.0 L [facility] CBC + DIFF MONOS % 5.1 % 0.0 - 10.0 [facility] CBC + DIFF EO % 1.4 % 0.0 - 7.0 [facility] CBC + DIFF BASO % 0.3 % 0.0 - 2.0 [facility] CBC + DIFF LYMPH # 1.40 x10EE3/UL 0.80 - 2.80 [facility] CBC + DIFF NEUT # 7.70 x10EE3/UL 1.50 - 7.10 H [facility] CBC + DIFF MONO # 0.50 x10EE3/UL 0.20 - 1.00 [facility] CBC + DIFF EO # 0.10 x10EE3/UL 0.00 - 0.50 [facility] CBC + DIFF BASO # 0.00 x10EE3/UL 0.00 - 0.10 [facility] CBC + DIFF MANUAL DIFF N/A [facility] CBC + DIFF MORPHOLOGY N/A [facility] {CD] HEPATITIS C AB NOTE [facility] HEPATITIS C AB HEPATITIS C AB IA Negative NEGAT [facility] [address] [place] [address] Bradford Luna III, M.D. [id number] POMERENE 3 [CCL NOTE [facility] POMERENE 3 [CCL RPR Non Reactive NR [facility] POMERENE 3 [CCL HEPATITIS B SURF. AG Negative NEGAT [facility] POMERENE 3 [CCL RUBELLA IGG AB, QUAL Positive NEGAT A [facility] Sample is considered positive for IgG antibodies to rubella virus. A positive result indicates previous exposure to Rubella virus or vaccination. POMERENE 3 [CCL RUBELLA IGG AB 5.03 Indexlue [facility] Index values are interpreted as follows: Negative specimens <0.90 Equivocol specimens 0.90 to 0.99 Positive specimens >0.99 The magnitude of the measured result is not indicative of the amount of antibody present. [id number] [place] [address] Bradford Luna III, M.D. [id number] TSH NOTE [facility] TSH TSH 1.56 uIU/ml 0.34 - 5.60 [facility] BB TYPE NOTE [facility] BB TYPE BB TYPE [facility] TYPE, Rh, AND SCREEN BB TYPE ABO A [facility] BB TYPE RH POS [facility] BB TYPE ANTIBODY SCR negative [facility] CBC + DIFF NOTE [facility] CBC + DIFF CBC + DIFF [facility] CBC-COMPLETE BLOOD COUNT CBC + DIFF WBC 10.7 x 10EE3/UL 4.5 - 10.8 [facility] CBC + DIFF RBC 3.91 x 10EE6/UL 4.10 - 5.30 L [facility] CBC + DIFF HEMOGLOBIN 11.8 g/dl 12.0 - 16.0 L [facility] CBC + DIFF HEMATOCRIT 34.3 % 34.0 - 46.0 [facility] CBC + DIFF MCV 88 fl 80 - 99 [facility] CBC + DIFF MCH 30 pg 27 - 33 [facility] CBC + DIFF MCHC 35 X10 3 32 - 36 [facility] CBC + DIFF RDW/CV 14.7 % 12.0 - 15.6 [facility] CBC + DIFF PLATELET 314 x10EE3/UL 150 - 450 [facility] CBC + DIFF MPV 8.1 fl 6.6 - 10.5 [facility] AUTOMATED DIFFERENTIAL CBC + DIFF NEUT % 79.7 % 46.0 - 76.0 H [facility] CBC + DIFF LYMPH % 14.9 % 20.0 - 45.0 L [facility] CBC + DIFF MONOS % 3.8 % 0.0 - 10.0 [facility] CBC + DIFF EO % 1.2 % 0.0 - 7.0 [facility] CBC + DIFF BASO % 0.4 % 0.0 - 2.0 [facility] CBC + DIFF LYMPH # 1.60 x10EE3/UL 0.80 - 2.80 [facility] CBC + DIFF NEUT # 8.50 x10EE3/UL 1.50 - 7.10 H [facility] CBC + DIFF MONO # 0.40 x10EE3/UL 0.20 - 1.00 [facility] CBC + DIFF EO # 0.10 x10EE3/UL 0.00 - 0.50 [facility] CBC + DIFF BASO # 0.00 x10EE3/UL 0.00 - 0.10 [facility] CBC + DIFF MANUAL DIFF N/A [facility] CBC + DIFF MORPHOLOGY N/A [facility] URINALYSIS NOTE [facility] URINALYSIS URINALYSIS [facility] URINALYSIS URINALYSIS SPECIMEN TYPE Clean catch [facility] URINALYSIS COLOR p.yel NORMAL: YELLOW [facility] URINALYSIS CLARITY clear NORMAL: CLEAR [facility] URINALYSIS PH 6 NORMAL: 5.0-8.0 [facility] URINALYSIS PROTEIN NEG NORMAL: NEGATIV [facility] URINALYSIS GLUCOSE NORM NORMAL: NORMAL [facility] URINALYSIS KETONE NEG NORMAL: NEGATIV [facility] URINALYSIS BILIRUBIN NEG NORMAL: NEGATIV [facility] URINALYSIS BLOOD NEG NORMAL: NEGATIV [facility] URINALYSIS UROBILINOG NORM NORMAL: NORMAL [facility] URINALYSIS SP GRAVITY 1.015 NORMAL: 1.010-1 [facility] URINALYSIS NITRITE NEG NORMAL: NEGATIV [facility] URINALYSIS LEUKOCYTES NEG NORMAL: NEGATIV [facility] URINALYSIS MICROSCOPIC NOT INDICATED [facility] CHLAMYDIA/GC NA NOTE ARCE CHLAMYDIA/GC NA CHLAMY,NUC ACID Negative Negative LC CHLAMYDIA/GC NA GC BY NUC ACID Negative Negative LC Performed at: =[address] [id number] Certified Ophthalmic Medical Technician: Kayleen Burciaga MD, Phone: [phone] PAP IG W/REFLEX NOTE ARCE PAP IG W/REFLEX DIAGN Comment . LC NEGATIVE FOR INTRAEPITHELIAL LESION OR MALIGNANCY. PAP IG W/REFLEX ADEQ Comment . LC Satisfactory for evaluation. Endocervical and/or squamous metaplastic cells (endocervical component) are present. PAP IG W/REFLEX PERFORM Comment . Lakeshia Nieto, Special Effects Person (ASCP) PAP IG W/REFLEX TEST METHOD Comment . This liquid based ThinPrep(R) pap test was screened with the use of an image guided system. PAP IG W/REFLEX COMM . . PAP IG W/REFLEX PAPSMR Comment . The Pap smear is a screening test designed to aid in the detection of premalignant and malignant conditions of the uterine cervix. It is not a diagnostic procedure and should not be used as the sole means of detecting cervical cancer. Both false-positive and false-negative reports do occur. PAP IG W/REFLEX HPV RFLX Comment . The HPV DNA reflex criteria were not met with this specimen result therefore, no HPV testing was performed. Performed at: [address] [id number] Certified Ophthalmic Medical Technician: Kayleen Burciaga MD, Phone: [phone] == ==== Impression /Plan: 32 wks + 4 days intrauterine with placenta previa and PROM. Will start IV, give steroids, and type and cross. Monitoring bleeding. Likely delivery soon or later today. Preparations in progress for delivery.
[2020-09-21] MEDS: Lactated Ringers 1,000 ML 150 ML IV ×2 (09:15→15:54)
[2020-09-21] MEDS: Betamethasone/Betamethasone 30 MG/5 ML Vial 12 MG IM (09:39)
[2020-09-21 09:42] LABS: Absolute Lymphocyte Count 1.23 X10^3/uL (0.83-4.51); Basophil# 0.03 X10^3/uL; Basophil% 0.3 % (0-1); Eosinophil# 0.03 X10^3/uL; Eosinophils% 0.3 % (0-5); Hematocrit 38.4 % (37-47); Hemoglobin 13.1 g/dL (12.0-15.0); Lymphocyte # 1.23 X10^3/ul (4.0); Lymphocyte % 11.4 % (19-41); Mean Corp Hgb Conc 34.1 g/dL (32-36); Mean Corpuscular Hgb 30.5 pg (27.0-32.0); Mean Corpuscular Volume 89.3 fL (81-99); Mean Platelet Vol. 10.4 fl (6.2-12.0); Monocyte# 0.41 X10^3/uL; Monocyte% 3.8 % (0-10); NRBC Flagged by Analyzer 0 % (0-5); Neutrophil # 9.02 X10^3/uL (2.7-7.7); Neutrophil % 83.8 % (47-70); Platelet Count 259 K/mm3 (150-450); RBC Distribution Width CV 13.5 % (11.6-14.6); RBC Distribution Width SD 44.3 fl (35.1-43.9); White Blood Count 10.8 K/mm3 (4.4-11.0)
[2020-09-21 10:02] LABS: Fibrinogen 599 mg/dl (203-444); Prothrombin Time (Protime)PT. 12.4 SECONDS (11.7-14.9)
[2020-09-21 10:22] LABS: Partial Thromboplast Time 25.2 Seconds (24.1-36.2)
[2020-09-21] MEDS: Acetaminophen 500 MG Tablet 1000 MG PO ×2 (16:35→22:44)
[2020-09-21] MEDS: Sodium Citrate/Citric Acid 30 ML UDC PO (17:47)
[2020-09-21] MEDS: Cefazolin 2 GM in 0.9% Normal Saline 100 ML IV (17:59)
--- NOTE | 2020-09-21 19:22 | OP.PCM_ITS ---
Delivery Classification: OLIMPAI Final SYLVIE: 11/12/20 Final SYLVIE Source: US <20 weeks Gestational age: 32 Weeks and 4 Days doctor who attended delivery (if requested by OB): Azucena Valdovinos - 32+ wks gest commodities requirements analyst: Yao Collier Type of Anesthesia:: Spinal - With Duramorph Implants Used: None Date of Procedure: 09/21/20 Pre-Operative Diagnosis: 32+ Week Intrauterine , Total Placenta Previa, Premature Rupture of Membranes, Prior x4 Post-Operative Diagnosis: 32+ Week Intrauterine , Total Placenta Previa, Premature Rupture of Membranes, Prior x4 Description of Procedure: Surgeon: Ashwin Melendez MD, FACOG Anesthesia: Marsha Ayon CRNA Procedure: Repeat Low Transverse Cervical Caesarean Section and Bilateral Salpingectomy Findings: Viable female infant with Apgars of 8/9 in milagro breech presentation rotated to cephalic presentation with clear amniotic fluid and normal three- vessel placenta with a true knot in the cord. Indication: This is a 35-year-old who presents for her fifth at 32+ weeks gestation. care has been eventful for a total placenta previa with multiple episodes of vaginal bleeding during the . This morning she presented with heavy bleeding and rupture of membranes were confirmed with ROM plus test. Bleeding subsided and steroids were given during the day and we proceeded with repeat section this evening. The patient has been counseled regarding the risk and indications of this procedure including the possibility of bleeding infection and injury to surrounding structures such as bowel bladder. Ebony and her have also requested permanent sterilization and have considered this form of control for quite some time. All questions were answered. Procedure: Patient was taken to the operating room where after spinal anesthesia was placed, the patient was prepped and draped in usual sterile fashion and a Kim catheter was placed. The abdomen was entered through the patient's prior Pfannenstiel incision and peritoneum was entered bluntly. After developing a bladder flap on the lower uterine segment a low transverse incision was made on the uterus and head was delivered through the placenta onto the operative field the nose mouth and oropharynx were bulb suctioned. Subsequently a viable female was born with Apgars of 8/9. The was noted to cry move all extremities vigorously on the operative field. The umbilical cord was doubly clamped and ligated and infant handed to the nursery personnel including the [facility] transport team who were present for the delivery. Placenta was delivered and noted to be 3 vessels and normal with a true knot in the cord. Arterial and venous blood gases were obtained. Uterus was exteriorized and remaining placental tissue was removed. The uterus was then closed in 2 layers first with running locked 0 Vicryl suture followed by a second imbricating layer with 0 Vicryl suture. 0 Vicryl suture was then used in a horizontal mattress interrupted fashion to affect final hemostasis of the uterine incision line. Normal fallopian tubes and ovaries were visualized and removed using a LigaSure device. The uterus was returned to the pelvis. Hemostasis was noted and rectus abdominis muscles were reapproximated in the midline with interrupted Number 0 Vicryl suture in a horizontal mattress fashion after dividing omental adhesions with the LigaSure device. Fascia was closed with running Number 1 PDS Strata fix suture. Subcutaneous tissue was irrigated with copious amounts of saline solution and then closed with running 3-0 Vicryl suture. Skin was closed with 4-0 monocryl suture in a running subcuticular fashion. Steri strips and a Mepilex dressing were placed across the incision. The patient tolerated the procedure well and was taken to the recovery room in satisfactory condition. Sponge, needle, and instrument counts were all reportedly correct. EBL was 500 cc cc. Ampicillin and azithromycin as well as Ancef IV was given prior to the procedure. Spicemen to Pathology: Bilateral fallopian tubes Complications: None Amniotic Membrane Rupture Type: Spontaneous Amniotic Fluid Description: Bloody Placenta Disposition: [facility] Specimen(s) sent to pathology: Bilateral fallopian tubes Drain: Kim to straight drain Fluids Replaced: Crystalloid Cord Entanglement: True Knot(s) - X1 Cord Vessel Description: 3 Vessels Esitmated Blood Loss (ml): 500 cc Infant Gender: Female (1 minute): 8 (5 minute): 9 Antibiotic Given: Ancef 2 grams IV x1, Zithromax 500 mg/5 mL X1 Pt instructed on risks of surgery: Bleeding, Infection, Permanency, Injury to surrounding structure(s) including bowel and bladder, Availability of other non- permanent control options Complications: None - Admit VTE Documentation VTE Present on Admission: Yes VTE Mechan Device Prophylaxis: SCD's
--- NOTE | 2020-09-21 19:34 | PCM.DCCSEC ---
Discharge Diet: No Restrictions Discharge Activity: May not drive while taking narcotic pain medications., May Shower, May Take a Tub Bath May resume sexual activity in: 4-6 weeks Lifting Restrictions: 20 pounds Additional Activity Instructions:: Nothing in the vagina for 4-6 weeks. You may return to work/school in 6 weeks. Call your doctor if your incision/area has: Continuous Slow Oozing, Sudden Increased Bleeding, Increased Pain/ Swelling, Increased Redness, Foul Smelling Discharge Call your doctor if you observe: Fever of 101 or Higher, Inability to urinate, Inability to have a bowel movement, Using more than one pad per hour Additional Instructions: If you experience any of the following, contact your healthcare provider. Bleeding that soaks a pad every hour for 2 hours Fever 100.4 or higher Unrelieved incision or abdominal pain Swelling, redness, discharge or bleeding from your incision or episiotomy site Your incision begins to separate Problems urinating (including inability to urinate or burning while urinating). Visual changes Severe headache Flu-like symptoms Pain or redness in one of both of your breasts Pain, warmth, tenderness or swelling in your legs, especially the calf area Frequent nausea and vomiting Symptoms of depression or anxiety If you experience any of the following, call 911 or go to the nearest Emergency Room. Chest pain Problems breathing Seizure activity Partial or complete paralysis of a body part, slurred speech, weakness or drooping of the face, or a sudden inability to walk or hold your balance Allergies/Adverse Reactions: Allergies No Known Allergies Allergy (Verified 05/06/18 12:06) Medications to take at Discharge Vits [Prenatabs FA] 1 tab PO DAILY 08/28/20 Docusate Sodium [Colace] 100 mg PO BID PRN PRN #60 cap 09/21/20 Oxycodone [Oxyir] 5 mg PO Q6H PRN PRN 7 Days #20 tab 09/21/20 The following prescriptions were given: Docusate Sodium [Colace] 100 mg PO BID PRN PRN #60 cap PRN Reason: Constipation Transmission [id number] Oxycodone [Oxyir] 5 mg PO Q6H PRN PRN 7 Days #20 tab PRN Reason: Pain Score 6-10 Transmission Status: [id number] Follow-Up: Call to make an appointment with your doctor for an incision check in 1-2 weeks. You will also need a 6 week post- follow up appointment. Test results from this visit will be discussed in further detail at your follow-up appointment, if applicable. Please Follow Up With: Ashwin Melendez MD - [phone] When: Call to make an appointment for an incision check in 2 weeks. Primary Care Physician: Krzysztof Thompson DO [Primary Care Provider] -
[2020-09-21] MEDS: Lactated Ringers 1,000 ML 100 ML IV (19:40)
--- NOTE | 2020-09-21 19:40 | NURSING ---
FORMER[facility] from [facility] was here for delivery and took over care of baby. no cuddle was placed due to being transported.
[2020-09-21] MEDS: Oxytocin 30 units/NS 500 ml 30 UNITS/500 ML IV.SOLN 250 UNITS IV (19:50)
[2020-09-21] MEDS: Oxytocin 30 units/NS 500 ml 30 UNITS/500 ML IV.SOLN 167 UNITS IV (21:50)
[2020-09-22] VITALS (8 sets, daily range): BP systolic 94–108; BP diastolic 56–75; PULSE 64–80; RESP 14–18; TEMP 36.4–37.1; O2SAT 14–100
--- NOTE | 2020-09-22 00:19 | FALS_PTH ---
PATIENT: KASSANDRA SANFORD LOC: [facility] U#:[id number] AGE/SX: 35/F ROOM: WP005 RE09/21/[address]: Dr. Ashwin Melendez MD : [id number] BED: 1 DIS: 09/23/2020 SPEC #: [id number] RECD: 09/22/20 00:25 STATUS: SATURNINO NILE #: [id number] RENEE: 09/22/20 00:[address]: Ashwin Melendez DEPT: SURGICAL PATHOLOGY RECD BY: Clarissa Hernández ENTERED: 09/22/20 13:22 SP TYPE: FALL TUBES OTHR DR: Dr. Krzysztof Thompson, Tissues: Fallopian tube Procedures: Surgery Specimen Level II HEADER OPERATION: Tubal ligation PRE-OP DIAGNOSIS: Sterilization TISSUE SUBMITTED: Fallopian tubes, left tube has suture MICROSCOPIC DIAGNOSIS Bilateral fallopian tubes, salpingectomy: Bilateral fallopian tubes including fimbrial ends, no pathologic diagnosis. SUAYPA:ancelmo 09/23/2020 MICROSCOPIC DESCRIPTION Slides are reviewed. GROSS DESCRIPTION Received in fixative is one container labeled with the patient's name and designated bilateral fallopian tubes, left with suture. The specimen consists of two fallopian tubes with an average length of 4.5 cm and has an average diameter of 0.8 cm. Both fallopian tubes have normal fimbriated ends. No mass lesions are identified. Quality Systems Engineer sections are submitted in two cassettes as follows: 1 - right fallopian tube, 2 - left fallopian tube. / AM:ancelmo 09/22/20 TC:4 CPT: 04721 x2
[2020-09-22] MEDS: Ketorolac 30 MG/ML Syringe IV ×4 (01:01→18:47)
[2020-09-22] MEDS: Cefazolin 1 GM/50 ML BAG IV ×2 (01:37→10:47)
[2020-09-22] MEDS: Acetaminophen 500 MG Tablet 1000 MG PO ×4 (05:25→22:50)
[2020-09-22] MEDS: Lactated Ringers 1,000 ML 100 ML IV (05:26)
[2020-09-22 05:45] LABS: Hematocrit 32.7 % (37-47); Hemoglobin 10.8 g/dL (12.0-15.0); Mean Corpuscular Hgb 30.3 pg (27.0-32.0); Mean Corpuscular Volume 91.9 fL (81-99); Mean Platelet Vol. 10.1 fl (6.2-12.0); Platelet Count 223 K/mm3 (150-450); RBC Distribution Width CV 13.3 % (11.6-14.6); RBC Distribution Width SD 45.6 fl (35.1-43.9); Red Blood Count 3.56 M/mm3 (4.2-5.4); White Blood Count 15.5 K/mm3 (4.4-11.0)
[2020-09-22] MEDS: 0.9% Saline Lock 10 ML Syringe IV ×6 (05:53→18:46)
--- NOTE | 2020-09-22 09:41 | PN.OBGYN_ITS ---
Subjective: Patient without complaints. Tolerating diet well. Positive flatus. Considering going home but then decided to stay. Minimal vaginal bleeding not ed. Objective: Wound is clean, dry, intact covered with Mepilex dressing. Good urine output. Hemoglobin stable. - Physical Exam Vitals/I&O's: Vital Signs Temp Pulse Resp BP Pulse Ox 97.5 F L 72 16 104/75 100 09/22/20 08:46 09/22/20 08:46 09/22/20 08:46 09/22/20 08:46 09/22/20 08:46 Oxygen Delivery Method Room Air Weight: 173 lb Body Mass Index (BMI) 28.8 Intake and Output for Last 24 Hours 09/20/20 09/21/20 09/22/20 23:59 23:59 23:59 Intake Total 2525 / 2525 3608.34 / 3608.34 Output Total 150 / 150 3850 / 3850 Balance 2375 / 2375 -241.66 / -241.66 Microbiology Past 72 Hours 09/21/20 09:20 Mucosa - Nose SARS-CoV-2 Antigen (Rapid) - Final Laboratory Results 09/21/20 09:15: WBC 10.8, RBC 4.30, Hgb 13.1, Hct 38.4, MCV 89.3, MCH 30.5, MCHC 34.1, RDW Std Deviation 44.3 H, RDW Coeff of Efrain 13.5, Plt Count 259, MPV 10.4, Immature Gran % (Auto) 0.400, Neut % (Auto) 83.8 H, Lymph % (Auto) 11.4 L, [place] % (Auto) 3.8, Eos % (Auto) 0.3, Baso % (Auto) 0.3, Absolute Neuts (auto) 9.0 H, Absolute Lymphs (auto) 1.23, Nucleated RBC % 0 09/21/20 09:15: Blood Type A POSITIVE, Antibody Screen NEGATIVE 09/21/20 09:15: Crossmatch See Detail 09/21/20 09:15: PT 12.4, INR 1.0, APTT 25.2, Fibrinogen 599 H 09/22/20 05:35: WBC 15.5 H, RBC 3.56 L, Hgb 10.8 L, Hct 32.7 L, MCV 91.9, MCH 30.3, MCHC 33.0, RDW Std Deviation 45.6 H, RDW Coeff of Efrain 13.3, Plt Count 223, MPV 10.1 Current Medications Acetaminophen (Acetaminophen 500 Mg Tablet) 1,000 mg PO Q6H [facility] Last Admin: 09/22/20 05:25 Dose: 1,000 mg Documented by: Bisacodyl (Bisacodyl 10 Mg Suppository) 10 mg RC UD PRN PRN Reason: If no BM Diphenhydramine HCl (Diphenhydramine 25 Mg Capsule) 25 mg PO Q6H PRN PRN PRN Reason: ITCHING Stop: 09/22/20 19:39 Hydrocortisone (Hydrocortisone 2.5% Crm) 1 applic TOPICAL TID PRN PRN; Protocol PRN Reason: Discomfort Lactated Ringer's () 1,000 mls @ 100 mls/hr IV .Q10H [facility] Last Infusion: 09/22/20 06:15 Dose: 0 mls/hr Documented by: Cefazolin Sodium () 1 gm in 50 mls @ 150 mls/hr IV Q8H [facility] Stop: 09/22/20 10:19 Last Infusion: 09/22/20 02:14 Dose: Infused Documented by: Ibuprofen (Ibuprofen 600 Mg Tablet) 600 mg PO Q6H [facility] Ketorolac Tromethamine (Ketorolac 30 Mg/Ml Syringe) 30 mg IV Q6H [facility] Stop: 09/22/20 18:31 Last Admin: 09/22/20 07:16 Dose: 30 mg Documented by: Methylergonovine Maleate (Methylergonovine 0.2 Mg/Ml Ampul) 0.2 mg IM X1 PRN PRN Reason: Uterine Atony Nalbuphine HCl (Nalbuphine 10 Mg/Ml Ampul) 5 mg IV Q3H PRN PRN PRN Reason: ITCHING Stop: 09/22/20 19:38 Naloxone HCl (Naloxone 0.4 Mg/Ml Syringe) 0.02 mg IV Q1M PRN PRN Reason: RR <10 and pt unresponsive Ondansetron HCl (Ondansetron 4 Mg/2 Ml Vial) 4 mg IV Q4H PRN PRN PRN Reason: Nausea Oxycodone HCl (Oxycodone 5 Mg Tablet) 5 - 10 mg PO Q4H PRN PRN PRN Reason: Pain Score 4-10 Prochlorperazine Edisylate (Prochlorperazine 10 Mg/2 Ml Vial) 10 mg IV Q6H PRN PRN PRN Reason: NAUSEA Senna/Docusate Sodium (Senna/Docusate Sodium 1 Tablet) 1 - 2 tablet PO DAILY STEPHAN Simethicone (Simethicone 80 Mg Tablet) 80 mg PO PCHS PRN PRN Reason: Indigestion/stomach pain Sodium Chloride (0.9% Saline Lock 10 Ml Syringe) 5 - 15 ml IV UD PRN PRN Reason: SALINE FLUSH Last Admin: 09/22/20 07:16 Dose: 15 ml Documented by: Medical Necessity - Tobacco Use Smoking Status: Never smoker Assessment/Plan All Active Problems 33 weeks gestation of (Acute) distress (Acute) Doing well post operative day #1 status post repeat and tubal. Continuing present care. Home-going instructions given.
[2020-09-22] MEDS: Senna/Docusate Sodium 1 Tablet PO (10:47)
[2020-09-22] MEDS: Zolpidem Tartrate 5 MG Tablet PO (22:50)
[2020-09-23 02:14] VITALS: BP 100/54; PULSE 66; RESP 16; TEMP 36.4
[2020-09-23] MEDS: Ibuprofen 600 MG Tablet PO (05:41)
[2020-09-23] MEDS: Acetaminophen 500 MG Tablet 1000 MG PO (05:41)
--- NOTE | 2020-09-23 08:41 | PCM.PN.OB ---
Subjective: Patient without complaints. Tolerating diet well. Positive flatus. Ready to be discharged so she can go to [place] with her . Minimal vaginal bleeding noted. Objective: Wound is clean, dry, intact covered with Mepilex dressing. - Physical Exam Vitals/I&O's: Vital Signs Temp Pulse Resp BP Pulse Ox 97.6 F L 66 16 100/54 L 100 09/23/20 02:14 09/23/20 02:14 09/23/20 02:14 09/23/20 02:14 09/22/20 17:00 Oxygen Delivery Method Room Air Weight: 173 lb Body Mass Index (BMI) 28.8 Intake and Output for Last 24 Hours 09/21/20 09/22/20 09/23/20 23:59 23:59 23:59 Intake Total 2525 / 2525 3738.34 / 3738.34 Output Total 150 / 150 3850 / 3850 Balance 2375 / 2375 -111.66 / -111.66 Microbiology Past 72 Hours 09/21/20 09:20 Mucosa - Nose SARS-CoV-2 Antigen (Rapid) - Final Current Medications Acetaminophen (Acetaminophen 500 Mg Tablet) 1,000 mg PO Q6H [facility] Last Admin: 09/23/20 05:41 Dose: 1,000 mg Documented by: Bisacodyl (Bisacodyl 10 Mg Suppository) 10 mg RC UD PRN PRN Reason: If no BM Hydrocortisone (Hydrocortisone 2.5% Crm) 1 applic TOPICAL TID PRN PRN; Protocol PRN Reason: Discomfort Ibuprofen (Ibuprofen 600 Mg Tablet) 600 mg PO Q6H [facility] Last Admin: 09/23/20 05:41 Dose: 600 mg Documented by: Methylergonovine Maleate (Methylergonovine 0.2 Mg/Ml Ampul) 0.2 mg IM X1 PRN PRN Reason: Uterine Atony Naloxone HCl (Naloxone 0.4 Mg/Ml Syringe) 0.02 mg IV Q1M PRN PRN Reason: RR <10 and pt unresponsive Ondansetron HCl (Ondansetron 4 Mg/2 Ml Vial) 4 mg IV Q4H PRN PRN PRN Reason: Nausea Oxycodone HCl (Oxycodone 5 Mg Tablet) 5 - 10 mg PO Q4H PRN PRN PRN Reason: Pain Score 4-10 Prochlorperazine Edisylate (Prochlorperazine 10 Mg/2 Ml Vial) 10 mg IV Q6H PRN PRN PRN Reason: NAUSEA Senna/Docusate Sodium (Senna/Docusate Sodium 1 Tablet) 1 - 2 tablet PO DAILY STEPHAN Last Admin: 09/22/20 10:47 Dose: 2 tablet Documented by: Simethicone (Simethicone 80 Mg Tablet) 80 mg PO PCHS PRN PRN Reason: Indigestion/stomach pain Sodium Chloride (0.9% Saline Lock 10 Ml Syringe) 5 - 15 ml IV UD PRN PRN Reason: SALINE FLUSH Last Admin: 09/22/20 18:46 Dose: 10 ml Documented by: Zolpidem Tartrate (Zolpidem Tartrate 5 Mg Tablet) 5 mg PO QHS PRN PRN PRN Reason: SLEEP Last Admin: 09/22/20 22:50 Dose: 5 mg Documented by: Medical Necessity - Tobacco Use Smoking Status: Never smoker Assessment/Plan All Active Problems 33 weeks gestation of (Acute) distress (Acute) Doing well postoperative day #2 status post repeat section and bilateral salpingectomy. Will discharge with routine instructions.
[2020-09-23 08:49] VITALS: BP 106/73; PULSE 72; RESP 16; TEMP 36.5; O2SAT 99
[2020-09-23 15:00] LABS: Pathology Specimen OB SEE PATHOLOGY REPORT
== END 2020-09-23 11:00 | disposition home or self-care (01) | DRG 783 ==
LOC: WPOUT 08:44 → WP 08:44
PROVIDERS: Obstetrics & Gynecology; Admitting Provider Obstetrics & Gynecology; PCP Family Medicine; Referring Provider Obstetrics & Gynecology; Visit Provider Obstetrics & Gynecology
DX: O34.211 Maternal care for low transverse scar from previous cesarean delivery (principal); O60.14X0 Preterm labor third trimester with preterm delivery third trimester, not applicable or unspecified; O44.13 Complete placenta previa with hemorrhage, third trimester; O32.1XX0 Maternal care for breech presentation, not applicable or unspecified; O69.2XX0 Labor and delivery complicated by other cord entanglement, with compression, not applicable or unspecified; O42.913 Preterm premature rupture of membranes, unspecified as to length of time between rupture and onset of labor, third trimester; Z3A.33 33 weeks gestation of pregnancy; Z37.0 Single live birth; Z30.2 Encounter for sterilization
CPT/HCPCS: 59050; 84112; 85025; 85027; 85384; 85610; 85730; 86850; 86900; 86901; 86920; 86922; 87426; 88302; 99218; J7120; A4216; G0378; J0702; J2405